=== PATIENT | female | born 1980 | race American Indian/Alaskan Native ===

== ENCOUNTER 2018-10-04 16:00 | Emergency (ER) | payer MEDICAID, OTHER ==
[2018-09-19 11:50] VITALS: BMI 71.1
[2018-10-04 17:00] LABS: SQUAMOUS EPITHIAL 3 /hpf (0-5); URINE BILIRUBIN NEGATIVE (NEGATIVE); URINE BLOOD NEGATIVE (NEGATIVE); URINE CLARITY Clear (Clear); URINE COLOR Yellow (YELLOW); URINE GLUCOSE (UA) NORMAL (Normal); URINE LEUKOCYTE ESTERASE NEG Leu/uL (Negative); URINE PROTEIN NEGATIVE (NEGATIVE)
[2018-10-04] MEDS ORDERED: Lactated Ringer's 1,000 ML IV ONE (17:19)
--- NOTE | 2018-10-04 18:55 | OBHP ---
Datetime: 10/04/2018 16:32 IP Adm Impression: Term, intrauterine ; No Active Labor; Intact Membranes IP Admit Plan: Observation/Evaluation Admit Comment, IP Provider: 37 yo female with an IUP at 38 weeks and presented with c/o of pelvic pain every 30-40 minutes with a pain level at 10. Denies any LOF, VB or VD and admits to adequate FM PMHx Negative PSHx: 2 C/S's, 2 TOP, 1 misc Meds PNV NKDA A?P 38 weeks with irregular contractions and unfavorable cervix Scheduled for elective repeat C/S on 10/11 at 39 weeks Contractions became les frequent and pain at about 3-4 after IV fluids given NST reactive Admitted for Observation Pelvic Type - PN: Adequate Extremities - PN: Normal Abdomen - PN: Normal Back - PN: Normal Breast - PN: Not Done Lungs - PN: Normal Heart - PN: Normal Thyroid - PN: Normal Neurologic - PN: Normal HEENT - PN: Normal General - PN: Normal Presentation-Admit: Vertex FHR - Baseline A Provider: 150 Membranes, Provider: Intact Contraction Comments Provider: Irregular Gestation - Est Wks by US: 39.0 EGA AdmitDate IP: 38.0 Vital Signs Provider: Reviewed; Within Normal Limits IP Chief Complaint: Uterine contractions; Signs/symptoms UTI; Maternal discomfort NICHD Variability Prov Fetus A: Moderate 6-25bpm NICHD Accel Fetus A IP Provider: [id number] FHR Category Provider Fetus A: Category I NICHD Decel Fetus A IP Provider: None Dilatation, Provider: FTP Effacement, Provider: 25 Station, Provider: -3 Genitourinary Exam: Normal DTRs - PN: Normal
[2018-10-04 23:46] VITALS: BP 135/79; PULSE 78
== END 2018-10-04 19:30 | disposition home or self-care (01) ==
LOC: C.EROB 16:00
DX: O47.1 False labor at or after 37 completed weeks of gestation (principal); Z3A.38 38 weeks gestation of pregnancy
CPT/HCPCS: 81001; 99283; J7120

== ENCOUNTER 2018-10-05 21:20 | Emergency (ER) | payer OTHER ==
[2018-09-19 11:50] VITALS: BMI 71.1
--- NOTE | 2018-10-05 22:12 | OBHP ---
Datetime: 10/05/2018 22:01 IP Adm Impression: Term, intrauterine ; No Active Labor IP Admit Plan: Observation/Evaluation; Discharge home Admit Comment, IP Provider: this is a 38 y/o at 38.1 wks prsented with c/o ctx for 2-3 days. Pt was seen last night for the same. Pt has no worsening of symptoms than last two days. She not comfor table to stay home and continue until her scheduled c section date of 10/11/18. Pt has no c/o vaginal bleeding, LOF. + FM> ABD: Soft, NT TOCO: 1 ctx in 40 min EFM: Cat 1 A/P: 38 y/o at 38.1 wks with c/o ctx since 2-3 days Not in labor Encouraged hydration Warm bath Precautions discussed Explained that delivery before 39 wks is not recommended for maternal discomfort All the questions answered Pelvic Type - PN: Adequate Extremities - PN: Normal Abdomen - PN: Normal Back - PN: Normal Breast - PN: Normal Lungs - PN: Normal Heart - PN: Normal Thyroid - PN: Normal Neurologic - PN: Normal HEENT - PN: Normal General - PN: Normal Presentation-Admit: Vertex FHR - Baseline A Provider: 120 Contraction Comments Provider: 1 ctx in 30min Comments, ACOG Physical Exam: ABD: Soft, Non tender VE: defered, pt is not in labor Gestation - Est Wks by US: 38.1 EGA AdmitDate IP: 38.1 Vital Signs Provider: Reviewed IP Chief Complaint: Uterine contractions NICHD Variability Prov Fetus A: Moderate 6-25bpm NICHD Accel Fetus A IP Provider: 15X15 FHR Category Provider Fetus A: Category I NICHD Decel Fetus A IP Provider: None Genitourinary Exam: Normal DTRs - PN: Normal
[2018-10-06 03:05] VITALS: BP 123/82; PULSE 69; RESP 18; TEMP 99
== END 2018-10-05 22:30 | disposition home or self-care (01) ==
LOC: C.EROB 21:20
DX: O47.1 False labor at or after 37 completed weeks of gestation (principal); Z3A.38 38 weeks gestation of pregnancy